=== PATIENT | female | born 1950 | race Caucasian/White ===

== ENCOUNTER 2018-07-16 16:28 | Emergency (ER) | payer MEDICARE, OTHER ==
--- NOTE | 2018-07-16 16:33 | EDM.PDOC ---
ED HPI GENERAL MEDICAL PROBLEM - General Chief Complaint: Bite:Animal, Insect Stated Complaint: SCRATCHED BY CAN LEFT FOREARM/WRIST. Time Seen by Provider: 07/16/18 16:30 Source of Information: Reports: Patient History Limitations: Reports: No Limitations - History of Present Illness INITIAL COMMENTS - FREE TEXT/NARRATIVE: HISTORY AND PHYSICAL: History of present illness: Patient is a 68-year-old female who presents to the emergency room with complaints of a scratch from her daughter's cat to the left inner wrist. She states she was trying to give the cat bath when it tried to get out, resulting in a puncture wound of the left wrist. The cat's immunizations are up to date. Patient states she is unsure of her last tetanus. Denies any numbness or tingling of the affected extremity. Review of systems: As per history of present illness and below otherwise all systems reviewed and negative. Past medical history: As per history of present illness and as reviewed below otherwise noncontributory. Surgical history: As per history of present illness and as reviewed below otherwise noncontributory. Social history: See social history for further information Family history: As per history of present illness and as reviewed below otherwise noncontributory. Physical exam: General: Well-developed and well nourished 68 year old female. Alert and oriented. Nontoxic appearing and in no acute distress. HEENT: Atraumatic, normocephalic, pupils equal and reactive bilaterally, negative for conjunctival pallor or scleral icterus, mucous membranes moist, trachea midline. No drooling or trismus noted. No meningeal signs. No hot potato voice noted. Lungs: Clear to auscultation, breath sounds equal bilaterally, chest nontender. Heart: S1S2, regular rate and rhythm without overt murmur Abdomen: Soft, nondistended, nontender. Skin: Puncture wound noted to the left inner wrist. Mild soft tissue swelling and bruising noted around the site. Otherwise skin is intact, warm, dry. No lesions or rashes noted. Extremities: Moves all extremities per self without difficulty or deficits, strong grasp. Strong radial pulse. Cap refill less than 3 seconds. Neurovascular unremarkable. Neuro: Awake, alert, oriented. Cranial nerves II through XII unremarkable. Cerebellum unremarkable. Motor and sensory unremarkable throughout. Exam nonfocal. Notes: Patient states she does have multiple medication/antibiotic allergies. She states with previous cat bite and scratches she has been on doxycycline and prefers to be prescribed this medication. We reviewed signs and symptoms that would prompt her to return to the emergency room. Supportive care measures were reviewed and discussed. Voices understanding and is agreeable to plan of care. Denies any further questions or concerns at this time. Diagnostics: None Therapeutics: Tdap, bacitracin, wound care Prescription: Doxycycline Impression: Puncture wound Plan: 1. Keep the skin clean and dry. Continue to monitor for signs of improvement. 2. Take your antibiotic as directed. Ibuprofen as needed for pain management. 3. Follow-up with your primary care provider as we discussed. Return to the ED as needed and as discussed. Definitive disposition and diagnosis as appropriate pending reevaluation and review of above. - Related Data Allergies Allergy/AdvReac Type Severity Reaction Status Date / Time acetaminophen [From Percocet] Allergy H/A, N/V Verified 03/14/18 09:30 adhesive Allergy Redness Verified 03/14/18 09:30 azithromycin [From Zithromax] Allergy Rash Verified 03/14/18 09:24 bee venom protein (honey bee) Allergy Swelling Verified 03/14/18 09:25 cefixime [From Suprax] Allergy Rash Verified 03/14/18 09:25 cefprozil [From Cefzil] Allergy Hives Verified 03/14/18 09:25 ciprofloxacin [From Cipro] Allergy Rash Verified 03/14/18 09:26 dexamethasone [From Decadron] Allergy swelling/ra Verified 03/14/18 09:26 sh erythromycin base Allergy Rash Verified 03/14/18 09:26 [Erythromycin Base] gatifloxacin [From Tequin] Allergy Rash Verified 03/14/18 09:26 ketorolac tromethamine Allergy Rash Verified 03/14/18 09:26 [From Toradol] meperidine HCl [From Demerol] Allergy Rash Verified 03/14/18 09:26 niacin [From Slo-Niacin] Allergy Burning Verified 03/14/18 09:27 oxycodone [From Percocet] Allergy H/A, N/V Verified 03/14/18 09:27 penicillin V Allergy Difficulty Verified 03/14/18 09:27 Breathing Penicillins Allergy Anaphylactic Verified 03/14/18 09:28 Shock piroxicam Allergy Rash Verified 03/14/18 09:28 propoxyphene napsylate Allergy Rash Verified 03/14/18 09:28 [From Darvocet-N] Sulfa (Sulfonamide Allergy Rash Verified 03/14/18 09:28 Antibiotics) tramadol Allergy Redness Verified 03/14/18 09:28 triamcinolone [From Kenalog] Allergy swelling/ra Verified 03/14/18 09:29 sh Coban Wrap Allergy Hives Uncoded 03/14/18 09:29 SteriStrips Allergy Hives Uncoded 03/14/18 09:29 steroid injections Allergy rash/burnin Uncoded 03/14/18 09:29 g Home Meds: Home Meds Albuterol [Proventil Neb Soln] 1 dose NEB ASDIRECTED PRN 02/01/18 [History] Cyclobenzaprine [Flexeril] 10 mg PO ASDIRECTED PRN 02/01/18 [History] Fluticasone Furoate [Flonase Sensimist] 1 spray VERONIKA DAILY 02/01/18 [History] Melatonin 5 mg PO BEDTIME 02/01/18 [History] Metoprolol Succinate [Toprol XL 100mg] 100 mg PO DAILY 02/01/18 [History] Omeprazole Magnesium [Prilosec Otc] 20 mg PO DAILY 02/01/18 [History] Potassium Chloride [Klor-Con M20] 20 meq PO BID 02/01/18 [History] atorvaSTATin [Lipitor] 20 mg PO BEDTIME 02/01/18 [History] hydroCHLOROthiazide [Hydrochlorothiazide] 25 mg PO DAILY 02/01/18 [History] Albuterol [Ventolin HFA] 2 puff INH ASDIRECTED PRN 03/09/18 [History] Acetaminophen/HYDROcodone [[place] 325-10 MG] 1 - 2 tab PO Q4H PRN #60 tablet [Rx] Aspirin 325 mg PO BID #60 tablet 03/16/18 [Rx] Docusate Sodium [Colace] 100 mg PO BID PRN #60 cap 03/16/18 [Rx] Polyethylene Glycol 3350 [MiraLAX] 17 gm PO DAILY #30 packet 03/16/18 [Rx] Doxycycline [Vibramycin] 100 mg PO BID 7 Days #14 tab 07/16/18 [Rx] Past Medical History HEENT History: Reports: Impaired Vision Other HEENT History: chronic allergies,. horners syndrome rt eye Cardiovascular History: Reports: High Cholesterol, Hypertension Other Cardiovascular History: palpatations Respiratory History: Reports: Asthma Other Respiratory History: does not use CPAP Gastrointestinal History: Reports: GERD Genitourinary History: Reports: None [employer] History: Reports: Musculoskeletal History: Reports: Back Pain, Chronic, Fracture, Osteoarthritis Other Musculoskeletal History: fx right tib-fib Neurological History: Reports: Migraines Other Neuro History: bulging discs Endocrine/Metabolic History: Reports: Obesity/BMI 30+ Hematologic History: Reports: Other (See Below) Other Hematologic History: unknown if blood transfusion Dermatologic History: Reports: None - Infectious Disease History Infectious Disease History: Reports: Chicken Pox, Measles, Mumps - Past Surgical History GI Surgical History: Reports: Appendectomy, Cholecystectomy Social & Family History - Family History Family Medical History: Noncontributory ED ROS GENERAL - Review of Systems Review Of Systems: ROS reveals no pertinent complaints other than HPI. ED EXAM, ANIMAL BITE - Physical Exam Exam: See Below (See dictation) Departure - Departure Time of Disposition: 16:50 Disposition: Home, Self-Care 01 Clinical Impression: Puncture wound - Discharge Information Instructions: Animal Bite, Adult, [id number] Forms: ED Department Discharge Additional Instructions: The following information is given to patients seen in the emergency department who are being discharged to home. This information is to outline your options for follow-up care. We provide all patients seen in our emergency department with a follow-up referral. The need for follow-up, as well as the timing and circumstances, are variable depending upon the specifics of your emergency department visit. If you don't have a primary care physician on staff, we will provide you with a referral. We always advise you to contact your personal physician following an emergency department visit to inform them of the circumstance of the visit and for follow-up with them and/or the need for any referrals to a consulting specialist. The emergency department will also refer you to a specialist when appropriate. This referral assures that you have the opportunity for follow-up care with a specialist. All of these measure are taken in an effort to provide you with optimal care, which includes your follow-up. Under all circumstances we always encourage you to contact your private physician who remains a resource for coordinating your care. When calling for follow-up care, please make the office aware that this follow-up is from your recent emergency room visit. If for any reason you are refused follow-up, please contact the [facility] Emergency Department at and asked to speak to the emergency department charge nurse. [facility] [address] [place] [id number] [address] [address] 1. Keep the skin clean and dry. Continue to monitor for signs of improvement. 2. Take your antibiotic as directed. Ibuprofen as needed for pain management. 3. Follow-up with your primary care provider as we discussed. Return to the ED as needed and as discussed.
[2018-07-16 16:45] VITALS: BP 153/76
[2018-07-16] MEDS ORDERED: Diphtheria,Pertussis(Acell),Tetanus Vaccine 0.5 ML Syringe IM ONE (16:45)
[2018-07-16] MEDS ORDERED: Bacitracin Oint 1 GM U/D Packet TOP ONE (16:45)
== END 2018-07-16 17:36 | disposition home or self-care (01) ==
LOC: MW.ED 16:28
DX: S61.532A Puncture wound without foreign body of left wrist, initial encounter (principal); E78.00 Pure hypercholesterolemia, unspecified; I10 Essential (primary) hypertension; Z79.82 Long term (current) use of aspirin; Z79.899 Other long term (current) drug therapy; Z23 Encounter for immunization
CPT/HCPCS: 90471; 90715; 99283

== ENCOUNTER 2023-08-28 22:20 | Emergency (ER) | payer OTHER, MEDICARE ==
[2023-08-28 23:42] LABS: BASOPHILS ABSOLUTE AUTO 0.06 K/uL (0.00-0.20); BASOPHILS PERCENT AUTO 0.7 % (0.0-1.0); EOSINOPHILS ABSOLUTE AUTO 0.23 K/uL (0.00-0.45); EOSINOPHILS PERCENT AUTO 2.8 % (0.0-6.0); HEMOGLOBIN 12.3 g/dL (12.0-16.0); IMMATURE GRAN ABSOLUTE AUTO 0.04 K/uL (0.00-0.05); IMMATURE GRAN PERCENT AUTO 0.5 % (0.0-0.4); LYMPHOCYTES ABSOLUTE AUTO 2.61 K/uL (1.00-4.80); LYMPHOCYTES PERCENT AUTO 32.1 % (24.0-44.0); MEAN CORPUSCULAR HEMOGLOBIN 28.5 pg (28.0-32.0); MEAN CORPUSCULAR HGB CONC 32.4 g/dL (32.0-36.0); MEAN CORPUSCULAR VOLUME 88.2 fL (83.0-99.0); MEAN PLATELET VOLUME 9.4 fL (9.4-12.3); MONOCYTES PERCENT AUTO 9.9 % (0.0-8.0); NEUTROPHILS ABSOLUTE AUTO 4.38 K/uL (1.80-7.70); PLATELET COUNT,PLT 304 K/uL (150-400); RED BLOOD CELL COUNT 4.31 M/uL (4.10-5.30); WHITE BLOOD CELL COUNT,WBC 8.12 K/uL (3.9-11.3)
[2023-08-28 23:55] LABS: INR < 0.93 (0.86-1.11)
[2023-08-28 23:59] LABS: CARBON DIOXIDE,CO2 31.1 mmol/L (21.0-32.0); CREATININE 0.9 mg/dL (0.6-1.0); EST CRCL DRUG DOSING (CG) 45.34 mL/min; POTASSIUM,K 3.3 mmol/L (3.5-5.1)
[2023-08-29 00:32] VITALS: PULSE 80
[2023-08-29 01:45] VITALS: BP 138/55
== END 2023-08-29 01:47 | disposition home or self-care (01) ==
LOC: MW.ED 22:20
DX: M79.89 Other specified soft tissue disorders (principal); I10 Essential (primary) hypertension; E78.00 Pure hypercholesterolemia, unspecified; J45.909 Unspecified asthma, uncomplicated; K21.9 Gastro-esophageal reflux disease without esophagitis; E66.9 Obesity, unspecified; Z68.34 Body mass index [BMI] 34.0-34.9, adult; M19.90 Unspecified osteoarthritis, unspecified site; Z90.49 Acquired absence of other specified parts of digestive tract; Z90.710 Acquired absence of both cervix and uterus; Z79.899 Other long term (current) drug therapy; Z79.82 Long term (current) use of aspirin; Z88.8 Allergy status to other drugs, medicaments and biological substances; Z88.2 Allergy status to sulfonamides; Z88.5 Allergy status to narcotic agent; Z88.1 Allergy status to other antibiotic agents; Z91.030 Bee allergy status
CPT/HCPCS: 36415; 73590-26-RT; 73590-RT; 80048; 85025; 85610; 85652; 86140; 93970; 93970-26; 99284

== ENCOUNTER 2023-09-11 14:06 | Emergency (ER) | payer MEDICARE, OTHER ==
[2023-09-11] MEDS: Lidocaine/Epineph/Tetracaine 3 ML Syringe TOP ONE (14:41)
[2023-09-11] MEDS: Diphtheria,Pertussis(Acell),Tetanus Vaccine 0.5 ML Syringe IM ONE (15:25)
[2023-09-11] MEDS: Acetaminophen 500 MG Tab PO ONE (15:26)
[2023-09-11 16:48] VITALS: BP 145/69; PULSE 85
== END 2023-09-11 16:48 | disposition home or self-care (01) ==
LOC: MW.ED 14:06
DX: S01.01XA Laceration without foreign body of scalp, initial encounter (principal); E78.00 Pure hypercholesterolemia, unspecified; I10 Essential (primary) hypertension; J45.909 Unspecified asthma, uncomplicated; M19.90 Unspecified osteoarthritis, unspecified site; E66.9 Obesity, unspecified; Z79.899 Other long term (current) drug therapy; Z79.82 Long term (current) use of aspirin; Z88.2 Allergy status to sulfonamides; Z88.0 Allergy status to penicillin; Z88.8 Allergy status to other drugs, medicaments and biological substances; Z91.048 Other nonmedicinal substance allergy status; Z88.5 Allergy status to narcotic agent; Z88.1 Allergy status to other antibiotic agents; Z91.030 Bee allergy status; Z75.8 Other problems related to medical facilities and other health care; Z68.32 Body mass index [BMI] 32.0-32.9, adult; Z23 Encounter for immunization; W19.XXXA Unspecified fall, initial encounter
CPT/HCPCS: 12001; 70450; 72125; 90471; 90715; 99283; A9270; 99284